=== PATIENT | female | born 1970 | race Two or more races ===

== ENCOUNTER 2025-01-15 20:11 | Inpatient (IN) | payer MEDICAID ==
[~2025-01-15] VITALS: Ht 170.2 cm; Wt 80.7 kg
[~2025-01-15 20:11] MED LIST: AMLO10TA80 PO; ASPI-1406 PO; LANTUSUD SUBCUT
[2025-01-15 21:42] LABS: CLARITY URINE CLEAR (CLEAR); COLOR URINE YELLOW (YELLOW); GLUCOSE URINE 3+ (NEGATIVE); KETONES URINE NEGATIVE (NEGATIVE); LEUKOCYTE ESTERASE URINE NEGATIVE (NEGATIVE); NITRITE URINE NEGATIVE (NEGATIVE); OCCULT BLOOD URINE NEGATIVE (NEGATIVE); PH URINE 5.5 (4.5-8.0); PROTEIN URINE 3+ (NEGATIVE); UROBILINOGEN URINE 0.2 E.U./dL (0.2-1.0)
[2025-01-15 21:51] LABS: CHLORIDE 104 mEq/L (98-107); POTASSIUM 4.8 mEq/L (3.5-5.1); SODIUM 136 mEq/L (136-145)
[2025-01-15 21:52] LABS: CARBON DIOXIDE 18 mEq/L (21-32)
[2025-01-15 21:57] LABS: GLUCOSE 311 mg/dL (70-105)
[2025-01-15 21:58] LABS: TROPONIN I HIGH SENSITIVITY 8 ng/L (3.0-34); UREA NITROGEN BLOOD 48 mg/dL (9-23)
[2025-01-15 21:58] LABS: BACTERIA URINE NONE SEEN; RBC URINE 0-2 /hpf (0-2); SQUAMOUS EPITHELIAL CELL URINE 1+ /lpf (RARE/1+); WBC URINE 0-2 /hpf (0-2)
[2025-01-15 22:01] LABS: CREATININE 6.3 mg/dL (0.6-1.0)
[2025-01-15 22:50] LABS: BASOPHILS % 0.8 % (0.0-2.0); EOSINOPHILS % 0.8 % (0.0-5.0); HEMATOCRIT. 33.8 % (36.0-48.0); HEMOGLOBIN. 11.1 g/dL (12.0-16.0); MEAN CORPUSCULAR HEMOGLOBIN 30.7 pg (28.0-32.0); MEAN CORPUSCULAR HGB CONC 32.8 g/dL (31.0-37.0); MEAN CORPUSCULAR VOLUME 93.6 fL (81.0-99.0); MEAN PLATELET VOLUME 10.1 fl (7.4-10.4); MONOCYTES % 6.8 % (2.0-8.0); NEUTROPHILS % 47.6 % (40.0-76.0); PLATELET 194 x1000/uL (130-400); RED BLOOD CELL COUNT 3.61 mill/uL (4.2-5.4); RED CELL DISTRIBUTION WIDTH 13.7 % (11.6-14.6); WHITE BLOOD COUNT 6.5 x1000/uL (4.5-11.0)
[2025-01-16] VITALS (12 sets, daily range): BP systolic 117–158; BP diastolic 62–88; PULSE 63–69; RESP 11–20; TEMP 36.7–37.1; O2SAT 97–100
[2025-01-16] MEDS ORDERED: GUAIFENESIN 200MG/10ML SUGAR FREE UDC PO PRN (01:45)
[2025-01-16] MEDS ORDERED: CLONIDINE 0.1MG TABLET PO PRN (01:45)
[2025-01-16] MEDS ORDERED: ACETAMINOPHEN 325MG TABLET PO PRN (01:45)
[2025-01-16] MEDS ORDERED: IPRATROPIUM/ALBUTEROL 0.5-3(2.5)MG/3ML NEB HHN PRN (01:45)
[2025-01-16] MEDS ORDERED: DEXTROSE 50% WATER 50ML SYRINGE IV PRN (02:15)
[2025-01-16 02:50] LABS: IRON 64 ug/dL (50-170)
[2025-01-16 02:53] LABS: TOTAL IRON BINDING CAPACITY 193 ug/dl (250-425)
[2025-01-16 03:03] LABS: FOLIC ACID (FOLATE) SERUM > 20.00 ng/mL (>5.38)
[2025-01-16 03:04] LABS: VITAMIN B12 SERUM 743 pg/mL (211-911)
[2025-01-16 09:15] LABS: PROTHROMBIN TIME 10.5 sec (9.6-11.0)
[2025-01-16] MEDS ORDERED: LIDOCAINE HCL 1% 10 MG/ML 10ML VIAL ONE (10:08)
[2025-01-16] MEDS: CEFAZOLIN 1000MG PREMIX 50 ML IV NR (10:45)
[2025-01-16] MEDS: INSULIN LISPRO 100 UNITS/ML SUBCUT SCH (12:00)
[2025-01-16] MEDS: BLOOD SUGAR DIAGNOSTIC STRIP TEST SCH (12:30)
[2025-01-16] MEDS: AMLODIPINE 10MG TABLET PO SCH (12:53)
[2025-01-17] VITALS (11 sets, daily range): BP systolic 98–133; BP diastolic 54–79; PULSE 59–77; RESP 18–20; TEMP 36.2–37.1; O2SAT 97–100
[2025-01-17 06:19] LABS: BASOPHILS % 0.6 % (0.0-2.0); EOSINOPHILS % 1.4 % (0.0-5.0); HEMOGLOBIN. 10.8 g/dL (12.0-16.0); LYMPHOCYTES % 52.7 % (20.0-50.0); MEAN CORPUSCULAR HEMOGLOBIN 30.9 pg (28.0-32.0); MEAN CORPUSCULAR HGB CONC 33.8 g/dL (31.0-37.0); MEAN CORPUSCULAR VOLUME 91.5 fL (81.0-99.0); MEAN PLATELET VOLUME 9.6 fl (7.4-10.4); MONOCYTES % 7.8 % (2.0-8.0); NEUTROPHILS % 37.5 % (40.0-76.0); PLATELET 178 x1000/uL (130-400); RED CELL DISTRIBUTION WIDTH 13.8 % (11.6-14.6); WHITE BLOOD COUNT 5.2 x1000/uL (4.5-11.0)
[2025-01-17 06:33] LABS: CALCIUM 9.3 mg/dL (8.7-10.4); POTASSIUM 4.3 mEq/L (3.5-5.1)
[2025-01-17 06:38] LABS: T4 FREE 1.2 ng/dL (0.89-1.76)
[2025-01-17 06:39] LABS: THYROID STIMULATING HORMONE 0.58 uIU/mL (0.55-4.78)
[2025-01-17 06:43] LABS: CREATININE 6.1 mg/dL (0.6-1.0)
[2025-01-17 07:42] LABS: HEPATITIS B SURFACE ANTIGEN NEGATIVE (Negative)
[2025-01-17 08:03] LABS: HEPATITIS A AB IGM NEGATIVE (Negative); HEPATITIS B CORE AB IGM NEGATIVE (Negative)
[2025-01-17 08:04] LABS: HEPATITIS C AB NON REACTIVE (Neg) (Negative)
[2025-01-17 10:07] LABS: PHOSPHORUS 5.2 mg/dL (2.5-4.9)
[2025-01-17] MEDS: SEVELAMER CARBONATE 800 MG TABLET PO SCH (17:30)
[2025-01-18] VITALS: BP 113/59; PULSE 66; RESP 20; TEMP 36.5; O2SAT 100
[2025-01-18 04:00] VITALS: BP 146/77; PULSE 74; RESP 20; TEMP 37.1; O2SAT 100
[2025-01-18 08:00] VITALS: BP 125/73; PULSE 67; RESP 18; TEMP 36.6; O2SAT 100
[2025-01-18 09:23] LABS: BASOPHILS % 0.8 % (0.0-2.0); EOSINOPHILS % 1.4 % (0.0-5.0); HEMATOCRIT. 35.1 % (36.0-48.0); HEMOGLOBIN. 11.2 g/dL (12.0-16.0); LYMPHOCYTES % 41.6 % (20.0-50.0); MEAN CORPUSCULAR HEMOGLOBIN 30.2 pg (28.0-32.0); MEAN CORPUSCULAR HGB CONC 31.8 g/dL (31.0-37.0); MEAN PLATELET VOLUME 10.1 fl (7.4-10.4); MONOCYTES % 8.8 % (2.0-8.0); NEUTROPHILS % 47.4 % (40.0-76.0); PLATELET 153 x1000/uL (130-400); RED CELL DISTRIBUTION WIDTH 14.1 % (11.6-14.6); WHITE BLOOD COUNT 4.4 x1000/uL (4.5-11.0)
[2025-01-18 09:47] LABS: POTASSIUM 4.6 mEq/L (3.5-5.1)
[2025-01-18 09:48] LABS: CALCIUM 8.8 mg/dL (8.7-10.4)
[2025-01-18 09:53] LABS: CREATININE 4.4 mg/dL (0.6-1.0)
[2025-01-18 12:00] VITALS: BP 116/65; PULSE 64; RESP 17; TEMP 36.6; O2SAT 100
[2025-01-18 16:00] VITALS: BP 100/51; PULSE 80; RESP 18; TEMP 36.6; O2SAT 100
[2025-01-19 08:00] VITALS: BP 112/75; PULSE 85; RESP 18; TEMP 36.7; O2SAT 98
[2025-01-19 12:00] VITALS: BP 105/67; PULSE 64; RESP 16; TEMP 36.9; O2SAT 98
[2025-01-19 16:00] VITALS: BP 107/60; PULSE 60; RESP 18; TEMP 36.8; O2SAT 98
[2025-01-19 20:00] VITALS: BP 110/62; PULSE 66; RESP 18; TEMP 36.8; O2SAT 98
[2025-01-20] VITALS (14 sets, daily range): BP systolic 99–150; BP diastolic 46–86; PULSE 61–78; RESP 16–20; TEMP 36.2–36.8; O2SAT 97–100
[2025-01-20 07:10] LABS: BASOPHILS % 0.7 % (0.0-2.0); EOSINOPHILS % 1.6 % (0.0-5.0); HEMATOCRIT. 35.1 % (36.0-48.0); HEMOGLOBIN. 11.7 g/dL (12.0-16.0); LYMPHOCYTES % 48.7 % (20.0-50.0); MEAN CORPUSCULAR HEMOGLOBIN 30.9 pg (28.0-32.0); MEAN CORPUSCULAR HGB CONC 33.3 g/dL (31.0-37.0); MEAN CORPUSCULAR VOLUME 92.8 fL (81.0-99.0); MONOCYTES % 5.9 % (2.0-8.0); NEUTROPHILS % 43.1 % (40.0-76.0); PLATELET 188 x1000/uL (130-400); RED BLOOD CELL COUNT 3.78 mill/uL (4.2-5.4); RED CELL DISTRIBUTION WIDTH 13.5 % (11.6-14.6); WHITE BLOOD COUNT 6.4 x1000/uL (4.5-11.0)
[2025-01-20 07:26] LABS: CALCIUM 9.2 mg/dL (8.7-10.4)
[2025-01-20 07:30] LABS: CREATININE 4.9 mg/dL (0.6-1.0)
[2025-01-21] VITALS: BP 95/72; PULSE 73; RESP 16; TEMP 36.7; O2SAT 100
[2025-01-21 04:00] VITALS: BP 142/79; PULSE 68; RESP 14; TEMP 36.8; O2SAT 100
[2025-01-21 08:00] VITALS: BP 130/73; PULSE 66; RESP 19; TEMP 36.2; O2SAT 99
[2025-01-21 12:00] VITALS: BP 98/64; PULSE 86; RESP 20; TEMP 36.2; O2SAT 100
[2025-01-21 16:00] VITALS: BP 102/63; PULSE 70; RESP 20; TEMP 36.3; O2SAT 100
[2025-01-21 20:00] VITALS: BP 92/59; PULSE 85; RESP 17; TEMP 36.7; O2SAT 97
[2025-01-22] VITALS (17 sets, daily range): BP systolic 79–158; BP diastolic 53–96; PULSE 65–91; RESP 17–20; TEMP 36.1–36.9; O2SAT 96–100
[2025-01-22 06:21] LABS: BASOPHILS % 0.7 % (0.0-2.0); HEMATOCRIT. 36.2 % (36.0-48.0); HEMOGLOBIN. 12.1 g/dL (12.0-16.0); LYMPHOCYTES % 50.2 % (20.0-50.0); MEAN CORPUSCULAR HEMOGLOBIN 30.7 pg (28.0-32.0); MEAN CORPUSCULAR HGB CONC 33.4 g/dL (31.0-37.0); MEAN PLATELET VOLUME 9.3 fl (7.4-10.4); MONOCYTES % 8.7 % (2.0-8.0); NEUTROPHILS % 38.4 % (40.0-76.0); PLATELET 181 x1000/uL (130-400); RED BLOOD CELL COUNT 3.93 mill/uL (4.2-5.4); RED CELL DISTRIBUTION WIDTH 13.4 % (11.6-14.6); WHITE BLOOD COUNT 5.3 x1000/uL (4.5-11.0)
[2025-01-22 06:31] LABS: POTASSIUM 4.1 mEq/L (3.5-5.1)
[2025-01-22 06:32] LABS: CALCIUM 9.8 mg/dL (8.7-10.4)
[2025-01-22 06:37] LABS: CREATININE 4.8 mg/dL (0.6-1.0)
[2025-01-23] VITALS: BP 103/67; PULSE 75; RESP 17; TEMP 36.4; O2SAT 100
[2025-01-23 04:00] VITALS: BP 104/67; PULSE 70; RESP 18; TEMP 36.6; O2SAT 99
[2025-01-23 08:00] VITALS: BP_SYST 140; BP_SYST 141; BP_SYST 97; BP_DIAS 65; BP_DIAS 78; BP_DIAS 79; PULSE 82; RESP 18; TEMP 36.6; O2SAT 100
[2025-01-23] MEDS: DOCUSATE SODIUM 100MG CAPSULE PO PRN (08:50)
[2025-01-23 12:00] VITALS: BP_SYST 152; BP_SYST 156; BP_DIAS 84; PULSE 77; RESP 18; TEMP 36.3; O2SAT 100
[2025-01-23] MEDS: ACETAMINOPHEN 325MG TABLET PO PRN (13:31)
[2025-01-23 14:45] VITALS: BP 152/84; PULSE 77; TEMP 97.4; O2SAT 100
[2025-01-23] MEDS ORDERED: QUETIAPINE FUMARATE 50MG TABLET PO SCH (21:00)
== END 2025-01-23 15:17 | disposition home or self-care (01) | DRG 466 ==
LOC: ER 20:11 → 7WST 01-16 01:08 → EDBEDREQ 01-16 01:19 → EDBEDREQTM 01-16 01:19 → ENRESERV 01-16 06:56 → 8EST 01-20 06:35
PROVIDERS: ADMIT Internal Medicine; ATTEND Internal Medicine
PROC: 0J2TXYZ Change Other Device in Trunk Subcutaneous Tissue and Fascia, External Approach (ICD-10-PCS; principal; 2025-01-16)
PROC: 5A1D70Z Performance of Urinary Filtration, Intermittent, Less than 6 Hours Per Day (ICD-10-PCS; 2025-01-17)
PROC: 5A1D70Z Performance of Urinary Filtration, Intermittent, Less than 6 Hours Per Day (ICD-10-PCS; 2025-01-20)
PROC: GZ56ZZZ Individual Psychotherapy, Supportive (ICD-10-PCS; 2025-01-23)
DX: T82.41XA Breakdown (mechanical) of vascular dialysis catheter, initial encounter (principal); I12.0 Hypertensive chronic kidney disease with stage 5 chronic kidney disease or end stage renal disease; E87.20 Acidosis, unspecified; E83.39 Other disorders of phosphorus metabolism; F25.0 Schizoaffective disorder, bipolar type; E11.22 Type 2 diabetes mellitus with diabetic chronic kidney disease; D64.9 Anemia, unspecified; N18.6 End stage renal disease; E11.65 Type 2 diabetes mellitus with hyperglycemia; Y71.2 Prosthetic and other implants, materials and accessory cardiovascular devices associated with adverse incidents; Y82.8 Other medical devices associated with adverse incidents; F17.210 Nicotine dependence, cigarettes, uncomplicated; Z90.710 Acquired absence of both cervix and uterus; Y92.89 Other specified places as the place of occurrence of the external cause; Z99.2 Dependence on renal dialysis; Z91.158 Patient's noncompliance with renal dialysis for other reason
CPT/HCPCS: 36415; 36558; 77001; 80048; 81003; 82607; 82746; 82962; 83036; 83540; 83550; 84100; 84439; 84443; 84484; 85025; 86705; 86709; 87340; 90935; 93005; 99285; C1750; C1769; J0690; J1642; J1815; J2003